=== PATIENT | female | born 1995 | race Caucasian/White ===

== ENCOUNTER 2021-07-15 21:37 | Inpatient (IN) | payer OTHER ==
[~2021-07-15] VITALS: Ht 165.1 cm; Wt 95.0 kg
[2021-07-15 22:21] LABS: BASO % 0.1 % (0.0-2.0); GRAN # 5.6 K/mm3 (1.4-6.5); GRAN % 82.4 % (42.2-75.2); HEMATOCRIT 41.8 % (37.0-47.0); HEMOGLOBIN 14.3 g/dl (12.5-16.0); LYMPH # 0.6 K/mm3 (1.2-3.4); MEAN CELL VOLUME 86 fl (80.0-100.0); MEAN CORPUSCULAR HEMOGLOBIN 29 pg (27-31); MEAN CORPUSCULAR HGB CONC 34 g/dl (33.0-37.0); MONO # 0.5 K/mm3 (0.1-0.6); MONO % 7.2 % (1.7-9.3); PLATELET COUNT 266 K/mm3 (130-400); RED BLOOD COUNT 4.86 M/mm3 (4.10-5.30)
[2021-07-15 22:41] LABS: ALBUMIN 3.4 gm/dL (3.5-5.0); BILIRUBIN,TOTAL 0.8 mg/dL (0.2-1.2); C-REACTIVE PROTEIN 22.07 mg/dL (0.00-0.50); CALCIUM 8.8 mg/dL (8.4-10.2); CREATININE, serum 0.75 mg/dL (0.57-1.11); POTASSIUM 3.4 mmol/L (3.5-4.5); TOTAL PROTEIN 7.5 gm/dL (6.2-8.1)
[2021-07-16 04:30] VITALS: BP 112/72; PULSE 106; TEMP 99.4
--- NOTE | 2021-07-16 06:10 | NUR ---
PT ARRIVED TO FLOOR APPROXIMATELY 0430 FROM ED. PT ON 2 L NC. PT DENIES PAIN, JUST TIRED. PT IS TACHYPNEIC AT REST. PT ASSESSMENT COMPLETED. PT STATES SHE JUST MOVED HERE FROM [place], RECENTLY TRAVELED FROM [place] FOR [place]. PT STATES SHE GIVES PERMISSION FOR ANY UPDATES GIVEN TO SILVANA DASILVA". CALL LIGHT IN REACH, PT ADVISED TO CALL FOR HELP IF GET INCREASED SOB, DIZZINESS OR LIGHTHEADED WHILE AMBULATING. CALL LIGHT IN REACH, NO OTHER NEEDS AT THIS TIME.
[2021-07-16 07:50] LABS: GRAN # 5.7 K/mm3 (1.4-6.5); GRAN % 86.6 % (42.2-75.2); HEMATOCRIT 38.7 % (37.0-47.0); LYMPH # 0.5 K/mm3 (1.2-3.4); LYMPH % 7.2 % (20.0-51.0); MEAN CELL VOLUME 87 fl (80.0-100.0); MEAN CORPUSCULAR HEMOGLOBIN 29 pg (27-31); MEAN CORPUSCULAR HGB CONC 34 g/dl (33.0-37.0); MEAN PLATELET VOLUME 10.2 fl (7.4-10.4); MONO # 0.3 K/mm3 (0.1-0.6); PLATELET COUNT 268 K/mm3 (130-400); RED BLOOD COUNT 4.44 M/mm3 (4.10-5.30); REDCELL DISTRIBUTION WIDTH-CV 11.9 % (11.5-14.5)
[2021-07-16 07:51] LABS: CALCIUM 8.6 mg/dL (8.4-10.2); CREATININE, serum 0.69 mg/dL (0.57-1.11); POTASSIUM 3.9 mmol/L (3.5-4.5)
[2021-07-16 09:58] VITALS: BP 98/63; PULSE 97; TEMP 98.6
--- NOTE | 2021-07-16 10:02 | NUR ---
THE PATIENT IS COMPLAINING OF A HEADACHE THAT IS WORSENED BY HER COUGH WELL PAIN IN THE CENTER OF HER CHEST. PT DOES GET TACHYCARDIC AND DESATS TO 82% WITH AMBULATION. NOTIFIED DR. RUIZ OF THE CHANGE IN STATUS HE STATES "WELL, SHE HAS COVID PNA". WILL CONTINUE TO MONITOR AND UPDATE PHYSICIAN NECESSARY.
[2021-07-16 12:46] VITALS: BP 108/75; PULSE 95; TEMP 97.8
--- NOTE | 2021-07-16 13:36 | NUR ---
The patient is COVID positive. SW attempted to contact the patient to discuss discharge plan. The patient did not answer. SW then contacted the patient's , Brant (ph#[phone]), to complete intake. The patient lives in [place] with her . Brant reports that the patient is normally independent with ADLs and does not have any DME. Brant reports that they just moved here from [place] not too long ago and the patient has not been established with a PCP here yet. Brant reports that they will probably prefer to use [facility]. The patient does not have a DPOA-HC. Her is her next of kin. Brant reports that the plan is for the patient to return home with him upon discharge. He is currently requiring 3 liters of oxygen. SW to continue to monitor. *Discharge plan: home with *
[2021-07-16 17:12] VITALS: BP 112/72; PULSE 99; TEMP 98.3
[2021-07-16 19:56] VITALS: BP 118/73; PULSE 101; TEMP 97.9
--- NOTE | 2021-07-16 23:21 | NUR ---
PT JUST GOT OUT OF SHOWER, STATED THAT SHE FELT EXHAUSTED AND SHOWERING TOOK A LOT OF HER ENERGY. PT DENIES PAIN, JUST BEING UNCOMFORTABLE IN BED. PT TOOK ALL MEDICATIONS PRESCRIBED, STATED WANTED TO TRY TO GET SOME SLEEP. PT HAS A COUGH THAT LEAVES HER OUT OF BREATH. CURRENTLY ON 6 L NC. CALL LIGHT IN PLACE, WILL CONTINUE TO MONITOR.
[2021-07-16 23:57] VITALS: BP 120/80; PULSE 94; TEMP 98.7
[2021-07-17] VITALS (7 sets, daily range): BP systolic 115–140; BP diastolic 71–88; PULSE 75–93; TEMP 97.4–98.4
--- NOTE | 2021-07-17 06:25 | NUR ---
PT HAD AN UNEVENTFUL NIGHT. PT DOWN TO 4L NC. CALL LIGHT IN REACH, ALL NEEDS MET.
[2021-07-17 08:07] LABS: HEMATOCRIT 41.1 % (37.0-47.0); HEMOGLOBIN 13.4 g/dl (12.5-16.0); MEAN CELL VOLUME 90 fl (80.0-100.0); MEAN CORPUSCULAR HEMOGLOBIN 29 pg (27-31); MEAN CORPUSCULAR HGB CONC 33 g/dl (33.0-37.0); MEAN PLATELET VOLUME 10.4 fl (7.4-10.4); PLATELET COUNT 331 K/mm3 (130-400); RED BLOOD COUNT 4.58 M/mm3 (4.10-5.30); REDCELL DISTRIBUTION WIDTH-CV 11.9 % (11.5-14.5)
[2021-07-17 08:22] LABS: C-REACTIVE PROTEIN 10.78 mg/dL (0.00-0.50); CALCIUM 8.9 mg/dL (8.4-10.2); CREATININE, serum 0.67 mg/dL (0.57-1.11); POTASSIUM 3.7 mmol/L (3.5-4.5)
--- NOTE | 2021-07-17 09:05 | NUR ---
PT PLEASANT, AOX4, DENIES PAIN, IN AM PT HAD EPISODE OF INC SOB WITH ACTIVITY, PT WAS THEN INC TO 6L. UNPON ENTRY TO ROOM LATER FOR ASSESSMENT PT WAS AT 1OL HIGH FLOW CANNULA, PT TITRATED DOWN TO 7L AND TOLERATED WELL. WILL CONTINUE TO TITRATE TOLERATED. PT DENIES PAIN, REPORTS BM IN AM, NOT DIARRHEA, DENIES VOMITING BUT REPORTS NAUSEA, ZOFRAN GIVEN FOR NAUSEA, NO OTHER NEEDS
[2021-07-17 09:18] LABS: BAND 15 % (0-10); LYMPHOCYTE 20 % (20.0-51.0); METAMYELOCYTE 1 % (0-0); NEUTROPHILS 61 % (42.0-75.2); PLATELET ESTIMATE NORMAL (NORMAL)
--- NOTE | 2021-07-17 13:16 | NUR ---
NOTIFIED DANIKA CARTWRIGHT THAT PT REPORTS SHARP CHEST PAIN IN BACK AND CHEST AFTER COUGH, BUT DENIES PAIN AT THIS TIME, NO NEW ORDERS
--- NOTE | 2021-07-17 17:41 | NUR ---
PT PLEASANT, AOX4, DENIES PAIN, REMDESIVIR INFUSING, UNEVENTFUL SHIFT
--- NOTE | 2021-07-17 22:41 | NUR ---
PT WAS ASSISTED TO BATHROOM BY THIS RN. PT STATED SOME DIZZINESS UPON RETURN. THIS RN COMPLETED ASSESSMENT, GAVE ROCEPHIN AND MUCUS RELIEF. CALL LIGHT IN REACH, ALL NEEDS MET. APPROXIMATELY 30 MINUTES AFTER GIVING MEDICATIONS, PATIENT CALLED STATED THAT THE ROOM IS SPINNING, DIZZY AND FELT WARM, FLUSHED WITH ITCHINESS ALL OVER INCLUDING THROAT. THIS RN WAS APPROACHED BY AIDE AND SYNTHETIC STAPLE EXTRUDER WHO WERE IN THE ROOM ASSESSING THE PATIENT. YOLETTE GÓMEZ CALLED, GAVE ORDER FOR BENADRYL, PEPCID,SOLU-MEDROL AND CLARITAN. THIS RN GOT MEDICATIONS AND STARTED ADMINSITERING MEDICATIONS. THIS RN STAYED AT BEDSIDE. PT STATED SYMPTOMS STARTED TO RESOLVE. YOLETTE GÓMEZ STATED Q1 VITALS TIL SYMPTOMS RESOLVE, THEN Q2 THEN RESUME Q4 VITALS. AT 2230, SYMPTOMS RESOLVED.
[2021-07-18] VITALS (7 sets, daily range): BP systolic 107–131; BP diastolic 65–86; PULSE 61–98; TEMP 97.4–98.6
--- NOTE | 2021-07-18 05:43 | NUR ---
PT HAD AN UNEVENTFUL NIGHT AFTER MEDICATION WAS GIVEN FOR ALLERGIC REACTION. PT STATES ONCE SHE WAS ABLE TO FALL ASLEEP, SHE SLEPT PRETTY DECENT. PT DENIES PAIN, DENIES SOB (ONLY ON MOVEMENT GETS SLIGHTLY SOB), DENIES ANY COMPLAINTS AT THIS TIME. PT IS CURRENTLY ON 3 L NC. CALL LIGHT IN REACH, ALL NEEDS MET.
--- NOTE | 2021-07-18 08:00 | NUR ---
PT PLEASANT, AOX4, DENIES PAIN, APPEARS SOB AT REST, ASSESSMENT PERFORMED, MEDICATIONS GIVEN, VITALS REVIEWED, NO OTHER NEEDS
--- NOTE | 2021-07-18 10:50 | NUR ---
PT REPORTS DIZZINESS, VITALS TAKEN AND STABLE, PT STATES "I THINK I JUST ATE TOO FAST"
--- NOTE | 2021-07-18 17:13 | NUR ---
PT DESAT WITH ACTIVITY, PT PLEASANT, SOB AT REST, DENIES PAIN, UNEVENTFUL SHIFT, NO OTHER NEEDS
--- NOTE | 2021-07-18 23:31 | NUR ---
Patient assessed around 2109. Alert and oriented, and able to make needs known. Complained of shortness of breath. Tachypneic. Oxygen had been at 2 L/min via NC. 89%. Increased to 3 L/min via NC, increased to 92%. Patient has coughing spells which increases SOB. Patient has called and noted redness to right side of face, reported that is how her allergic reaction had started last night. Given Benadryl IV. Also reported that she had been having some pain to sternum. VSS. Updated LIZA Morales. No new orders at this time. Stayed with patient for short time, and reported she was feeling better. Encouraged to continue to call with any questions, needs, or concerns, and voiced understanding. In bed with call light within reach.
[2021-07-19 00:41] VITALS: BP 99/63; PULSE 61; TEMP 97.9
[2021-07-19 04:44] VITALS: BP 111/61; PULSE 60; TEMP 97.9
--- NOTE | 2021-07-19 05:24 | NUR ---
Patient weaned down to oxygen at 2 L/min via NC. Voices no questions, needs, or concerns at this time. In bed with call light within reach.
[2021-07-19 06:44] LABS: HEMATOCRIT 39.3 % (37.0-47.0); HEMOGLOBIN 12.9 g/dl (12.5-16.0); MEAN CELL VOLUME 90 fl (80.0-100.0); MEAN CORPUSCULAR HEMOGLOBIN 30 pg (27-31); MEAN CORPUSCULAR HGB CONC 33 g/dl (33.0-37.0); MEAN PLATELET VOLUME 10.1 fl (7.4-10.4); PLATELET COUNT 386 K/mm3 (130-400); RED BLOOD COUNT 4.38 M/mm3 (4.10-5.30); REDCELL DISTRIBUTION WIDTH-CV 11.9 % (11.5-14.5)
[2021-07-19 07:03] LABS: CALCIUM 8.9 mg/dL (8.4-10.2); CREATININE, serum 0.74 mg/dL (0.57-1.11); POTASSIUM 3.7 mmol/L (3.5-4.5)
[2021-07-19 07:52] LABS: BAND 3 % (0-10); LYMPHOCYTE 27 % (20.0-51.0); NEUTROPHILS 63 % (42.0-75.2); PLATELET ESTIMATE NORMAL (NORMAL)
[2021-07-19 08:04] VITALS: BP 107/64; PULSE 57; TEMP 97.8
--- NOTE | 2021-07-19 08:30 | NUR ---
PT PLEASANT, AOX4, DENIES PAIN, REPORTS SOB AT REST AND BREATHING APPEARS LABORED AT REST, MEDICATIONS GIVEN, PT DENIES N/V/D AT THIS TIME, ASSESSMENT PERFORMED, VITALS REVIEWED, NO OTHER NEEDS
[2021-07-19 11:30] LABS: COLLECTION METHOD CLEAN CATCH
[2021-07-19 11:38] LABS: MUCOUS Present (NOT PRESENT); PH 6 (5-8); URINE APPEARANCE Hazy (CLEAR/HAZY); URINE BACTERIA None Seen /hpf (NONE SEEN); URINE BILIRUBIN Negative (NEGATIVE); URINE BLOOD Negative (NEGATIVE); URINE COLOR Yellow (YELLOW); URINE GLUCOSE Negative (NEGATIVE); URINE KETONE Negative (NEGATIVE); URINE LEUKOCYTE ESTERASE Negative (NEGATIVE); URINE NITRATE Negative (NEGATIVE); URINE PROTEIN(semi-quant) Negative (NEGATIVE); URINE RBC 0-2 /hpf (0-2); URINE UROBILINOGEN Negative (NEGATIVE)
[2021-07-19 12:01] VITALS: BP 106/62; PULSE 76; TEMP 98.7
[2021-07-19 16:09] VITALS: BP 102/63; PULSE 87; TEMP 97.5
--- NOTE | 2021-07-19 18:29 | NUR ---
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
[2021-07-19 20:11] VITALS: BP 113/76; PULSE 75; TEMP 97.8
--- NOTE | 2021-07-19 23:16 | NUR ---
Patient assessed around 2009. Alert and oriented x 4, and able to make needs known. Denies having pain and discomfort at this time. Peripheral INT to left AC. On oxygen at 2 L/min. Reports SOB with exertion, denies at rest. Voices no questions, needs, or concerns at this time. In bed with call light within reach.
[2021-07-20 00:09] VITALS: BP 104/59; PULSE 53; TEMP 98.1
--- NOTE | 2021-07-20 04:35 | NUR ---
Continues on oxygen at 2 L/min via NC. Voices no questions, needs, or concerns at this time. In bed with call light within reach.
[2021-07-20 05:02] VITALS: BP 91/52; PULSE 56; TEMP 97.3
[2021-07-20 05:37] LABS: HEMATOCRIT 39.4 % (37.0-47.0); MEAN CELL VOLUME 89 fl (80.0-100.0); MEAN CORPUSCULAR HEMOGLOBIN 29 pg (27-31); MEAN CORPUSCULAR HGB CONC 33 g/dl (33.0-37.0); MEAN PLATELET VOLUME 9.9 fl (7.4-10.4); PLATELET COUNT 398 K/mm3 (130-400); RED BLOOD COUNT 4.42 M/mm3 (4.10-5.30); REDCELL DISTRIBUTION WIDTH-CV 11.7 % (11.5-14.5)
[2021-07-20 05:58] LABS: C-REACTIVE PROTEIN 1.48 mg/dL (0.00-0.50); CALCIUM 8.4 mg/dL (8.4-10.2); CREATININE, serum 0.68 mg/dL (0.57-1.11); POTASSIUM 3.8 mmol/L (3.5-4.5)
[2021-07-20 06:18] LABS: BAND 3 % (0-10); LYMPHOCYTE 29 % (20.0-51.0); MYELOCYTE 1 % (0-0); NEUTROPHILS 50 % (42.0-75.2); PLATELET ESTIMATE INCREASED (NORMAL)
[2021-07-20 08:28] VITALS: BP 98/57; PULSE 77; TEMP 97.7
[2021-07-20] MEDS ORDERED: PROTONIX 40MG T40 MG PO (11:16)
[2021-07-20] MEDS ORDERED: DECADRON6 MG PO (11:16)
[2021-07-20 12:45] VITALS: BP 97/69; PULSE 90; TEMP 97.6
--- NOTE | 2021-07-20 16:39 | NUR ---
PT MET CRITERIA FOR DISCHARGE, VSS. ON ROOM AIR. IV REMOVED WITH NO COMPLICATIONS, CATHETER INTACT. DISCHARGE INSTRUCTIONS REVIEWED, PT VERBALIZED UNDERSTANDING. PT AWARE TO MAKE F/U WITH NEW PCP AND OF PRESCRIPTIONS TO LAN ENGINEER. PT DC TO HOME VIA WHEELCHAIR ACCOMPANIED BY TECHNICAL INSTRUCTOR.
== END 2021-07-20 16:48 | disposition home or self-care (01) | DRG 177 ==
LOC: COL.ER 21:37 → MEDICAL 07-16 00:46
PROVIDERS: Nurse Practitioner; Physician Assistant; Student in an Organized Health Care Education/Training Program; ADMIT Internal Medicine
PROC: XW033E5 Introduction of Remdesivir Anti-infective into Peripheral Vein, Percutaneous Approach, New Technology Group 5 (ICD-10-PCS; principal; 2021-07-16)
PROC: 5A0935A Assistance with Respiratory Ventilation, Less than 24 Consecutive Hours, High Flow/Velocity Cannula (ICD-10-PCS; 2021-07-17)
DX: U07.1 COVID-19 (principal); J12.82 Pneumonia due to coronavirus disease 2019; J96.01 Acute respiratory failure with hypoxia; E87.6 Hypokalemia; L29.8 Other pruritus; T36.1X5A Adverse effect of cephalosporins and other beta-lactam antibiotics, initial encounter; Z88.0 Allergy status to penicillin
CPT/HCPCS: 99223-AI; 99232-AI; 99233-AI; 99239; J0248; J0696; J1100; J1200; J1650; J1885; J2405; J2930; J7030; J7050; Q9967